=== PATIENT | female | born 1940 | race Caucasian/White ===

== ENCOUNTER → 2019-01-20 | Outpatient (CLI) | payer MEDICARE, MEDICAID ==
[2019-01-20 14:59] LABS: Potassium 4.2 mmol/L (3.5-5.1); Sodium 143 mmol/L (136-145)
[2019-01-20 15:00] LABS: Alanine Aminotransferase 24 U/L (13-56); Albumin 3.9 g/dL (3.4-5.0); Alkaline Phosphatase 47 U/L (45-117); Anion Gap 5 (5-15); Aspartate Aminotransferase 22 U/L (15-37); BUN/Creatinine Ratio 23.8; Bilirubin, Total 0.6 mg/dL (0.2-1.0); Blood Urea Nitrogen 24 mg/dL (7-18); Carbon Dioxide 29 mmol/L (21-32); Chloride 109 mmol/L (98-107); Cholesterol 170 mg/dL (< 200); GFR African American 68 mL/min; GFR Non-African American 56 mL/min; Glucose 88 mg/dL (74-106); HDL Cholesterol 73 mg/dL (40-59); Total Protein 7.4 g/dL (6.4-8.2); Triglycerides 84 mg/dL (< 150)
[2019-01-20 15:01] LABS: LDL Cholesterol 87 mg/dL (< 100)
[2019-01-20 15:02] LABS: Basophils # (auto) 0 uL; Basophils % (auto) 0.7 % (0.0-2.0); Eosinophils # (auto) 0.1 uL; Eosinophils % (auto) 1.2 % (0.0-7.0); Hematocrit 42.6 % (36.0-46.0); Hemoglobin 14.1 g/dL (12.2-16.2); Lymphocytes # (auto) 1.8 uL; Lymphocytes % (auto) 30.1 % (10.0-50.0); Mean Corpuscular Hemoglobin 31.3 pg (28.0-32.0); Mean Corpuscular Hgb Conc. 33.1 g/dL (32.0-36.0); Mean Corpuscular Volume 94.5 fL (80.0-100.0); Monocytes # (auto) 0.4 uL; Monocytes % (auto) 7.5 % (0.0-12.0); Neutrophils # (auto) 3.6 uL; Neutrophils % (auto) 60.5 % (37.0-80.0); Nucleated Red Blood Cells % 0.1 %; Platelet Count (auto) 255 10^3/uL (140-450); Red Blood Cells 4.51 10^6/uL (4.0-5.20); Red Cell Distribution Width 13.6 % (11.8-14.3); White Blood Cell 5.9 10^3/uL (4.4-10.8)
== END | disposition home or self-care (01) ==
LOC: LAB 14:42
PROVIDERS: ATTEND Internal Medicine Cardiovascular Disease
DX: E78.00 Pure hypercholesterolemia, unspecified (principal); R00.2 Palpitations; I10 Essential (primary) hypertension; R94.31 Abnormal electrocardiogram [ECG] [EKG]; R06.02 Shortness of breath; R07.9 Chest pain, unspecified
CPT/HCPCS: 36415; 80053; 80061; 84443; 85025

== ENCOUNTER → 2019-03-15 | Outpatient (CLI) | payer MEDICARE, MEDICAID ==
[2019-03-15 07:58] LABS: Urine Bacteria NONE SEEN /hpf (None Seen); Urine Blood Negative /uL (Negative); Urine Mucus FEW (None Seen); Urine Specific Gravity 1.019 (1.001-1.035); Urine WBC <1 /hpf (0 - 5)
[2019-03-15 08:01] LABS: INR 0.98 (0.9-1.15); Partial Thromboplastin Time 29.5 sec (23.64-32.05)
[2019-03-15 08:03] LABS: Basophils # (auto) 0.1 uL; Basophils % (auto) 1.3 % (0.0-2.0); Eosinophils # (auto) 0.1 uL; Eosinophils % (auto) 1.9 % (0.0-7.0); Hematocrit 42.5 % (36.0-46.0); Hemoglobin 14.2 g/dL (12.2-16.2); Lymphocytes # (auto) 1.5 uL; Lymphocytes % (auto) 28.9 % (10.0-50.0); Mean Corpuscular Hemoglobin 31.5 pg (28.0-32.0); Mean Corpuscular Hgb Conc. 33.3 g/dL (32.0-36.0); Mean Corpuscular Volume 94.7 fL (80.0-100.0); Monocytes # (auto) 0.4 uL; Monocytes % (auto) 7.5 % (0.0-12.0); Neutrophils # (auto) 3.1 uL; Neutrophils % (auto) 60.4 % (37.0-80.0); Nucleated Red Blood Cells % 0.1 %; Platelet Count (auto) 274 10^3/uL (140-450); Red Blood Cells 4.49 10^6/uL (4.0-5.20); Red Cell Distribution Width 13.5 % (11.8-14.3); White Blood Cell 5.2 10^3/uL (4.4-10.8)
[2019-03-15 08:11] LABS: Albumin 3.9 g/dL (3.4-5.0); Calcium 9.4 mg/dL (8.5-10.1); Potassium 4.1 mmol/L (3.5-5.1)
[2019-03-15 08:14] LABS: Bilirubin, Total 0.5 mg/dL (0.2-1.0); Total Protein 7.3 g/dL (6.4-8.2)
== END | disposition home or self-care (01) ==
LOC: LAB 07:35
PROVIDERS: ATTEND Internal Medicine Cardiovascular Disease
DX: I34.0 Nonrheumatic mitral (valve) insufficiency (principal); I35.1 Nonrheumatic aortic (valve) insufficiency; I48.0 Paroxysmal atrial fibrillation; I10 Essential (primary) hypertension; R00.2 Palpitations; E78.00 Pure hypercholesterolemia, unspecified; R94.31 Abnormal electrocardiogram [ECG] [EKG]; R07.89 Other chest pain; I27.21 Secondary pulmonary arterial hypertension; N39.0 Urinary tract infection, site not specified
CPT/HCPCS: 36415; 80053; 81001; 85025; 85610; 85730; 87086

== ENCOUNTER → 2019-10-04 | Outpatient (CLI) | payer MEDICARE, MEDICAID ==
[2019-10-04 08:48] LABS: Basophils # (auto) 0.1 uL; Basophils % (auto) 1.2 % (0.0-2.0); Eosinophils # (auto) 0.1 uL; Eosinophils % (auto) 1.3 % (0.0-7.0); Hematocrit 42.2 % (36.0-46.0); Hemoglobin 14.2 g/dL (12.2-16.2); Lymphocytes # (auto) 1.7 uL; Lymphocytes % (auto) 34.1 % (10.0-50.0); Mean Corpuscular Hemoglobin 31.5 pg (28.0-32.0); Mean Corpuscular Hgb Conc. 33.5 g/dL (32.0-36.0); Mean Corpuscular Volume 93.9 fL (80.0-100.0); Monocytes # (auto) 0.4 uL; Monocytes % (auto) 7.9 % (0.0-12.0); Neutrophils # (auto) 2.8 uL; Neutrophils % (auto) 55.5 % (37.0-80.0); Nucleated Red Blood Cells % 0.1 %; Platelet Count (auto) 286 10^3/uL (140-450); White Blood Cell 5.1 10^3/uL (4.4-10.8)
[2019-10-04 09:24] LABS: Potassium 3.9 mmol/L (3.5-5.1)
[2019-10-04 09:33] LABS: Albumin 3.7 g/dL (3.4-5.0); BUN/Creatinine Ratio 15.2; Bilirubin, Total 0.5 mg/dL (0.2-1.0); Calcium 9.1 mg/dL (8.5-10.1); Total Protein 7.4 g/dL (6.4-8.2)
== END | disposition home or self-care (01) ==
LOC: LAB 07:54
DX: F41.1 Generalized anxiety disorder (principal); I70.0 Atherosclerosis of aorta; E78.5 Hyperlipidemia, unspecified; E03.9 Hypothyroidism, unspecified; I11.9 Hypertensive heart disease without heart failure; E11.9 Type 2 diabetes mellitus without complications; E78.00 Pure hypercholesterolemia, unspecified; N39.0 Urinary tract infection, site not specified; R00.2 Palpitations; R06.02 Shortness of breath; R07.89 Other chest pain; R94.6 Abnormal results of thyroid function studies; R94.31 Abnormal electrocardiogram [ECG] [EKG]; Z79.899 Other long term (current) drug therapy
CPT/HCPCS: 36415; 80053; 80061; 82306; 83036; 84443; 85025

== ENCOUNTER → 2020-01-05 | Outpatient (CLI) | payer MEDICARE, MEDICAID | END | disposition home or self-care (01) | LOC: LAB 07:31 | DX: Z12.11 Encounter for screening for malignant neoplasm of colon (principal); R07.89 Other chest pain; I70.0 Atherosclerosis of aorta; R73.9 Hyperglycemia, unspecified | CPT/HCPCS: 36415; 83036 ==

== ENCOUNTER → 2020-10-06 | Outpatient (CLI) | payer MEDICARE, MEDICAID ==
[2020-10-06 07:06] LABS: Basophils # (auto) 0.1 10 ^3/uL (0-0.2); Basophils % (auto) 0.9 % (0.0-2.0); Eosinophils # (auto) 0.1 10 ^3/uL (0-0.8); Hematocrit 39.8 % (36.0-46.0); Hemoglobin 13.3 g/dL (12.2-16.2); Lymphocytes # (auto) 1.7 10 ^3/uL (0.4-5.4); Lymphocytes % (auto) 32.2 % (10.0-50.0); Mean Corpuscular Hemoglobin 31.1 pg (28.0-32.0); Mean Corpuscular Hgb Conc. 33.5 g/dL (32.0-36.0); Mean Corpuscular Volume 92.8 fL (80.0-100.0); Monocytes # (auto) 0.4 10 ^3/uL (0-1.3); Monocytes % (auto) 7.6 % (0.0-12.0); Neutrophils # (auto) 3.1 10 ^3/uL (1.6-8.6); Neutrophils % (auto) 58.3 % (37.0-80.0); Platelet Count (auto) 256 10^3/uL (140-450); Red Blood Cells 4.29 10^6/uL (4.0-5.20); Red Cell Distribution Width 13.5 % (11.8-14.3); White Blood Cell 5.4 10^3/uL (4.4-10.8)
[2020-10-06 07:23] LABS: Urine Bacteria NONE SEEN /hpf (None Seen); Urine Blood Negative /uL (Negative); Urine Hyaline Cast MOD /lpf (0 - 2); Urine Mucus FEW (None Seen); Urine Specific Gravity 1.021 (1.001-1.035); Urine WBC 2 /hpf (0 - 5)
[2020-10-06 07:27] LABS: Albumin 3.7 g/dL (3.4-5.0); Calcium 8.5 mg/dL (8.5-10.1)
[2020-10-06 07:31] LABS: BUN/Creatinine Ratio 18.6; Bilirubin, Total 0.5 mg/dL (0.2-1.0); Total Protein 7.3 g/dL (6.4-8.2)
== END | disposition home or self-care (01) ==
LOC: LAB 06:57
PROVIDERS: ATTEND Internal Medicine Cardiovascular Disease
DX: I11.9 Hypertensive heart disease without heart failure (principal); E88.81 Metabolic syndrome and other insulin resistance; E03.9 Hypothyroidism, unspecified; E55.9 Vitamin D deficiency, unspecified; E78.5 Hyperlipidemia, unspecified; E04.1 Nontoxic single thyroid nodule
CPT/HCPCS: 36415; 80053; 80061; 81001; 82306; 84443; 85025

== ENCOUNTER 2020-10-08 09:34 | Emergency (ER) | payer MEDICARE, MEDICAID ==
[~2020-10-08] VITALS: Ht 162.6 cm; Wt 61.2 kg
[2020-10-08] MEDS ORDERED: ASPirin 81 mg TAB PO ONE (10:00)
[2020-10-08 11:16] LABS: Basophils # (auto) 0 10 ^3/uL (0-0.2); Basophils % (auto) 0.6 % (0.0-2.0); Eosinophils # (auto) 0.1 10 ^3/uL (0-0.8); Eosinophils % (auto) 0.9 % (0.0-7.0); Hematocrit 41.1 % (36.0-46.0); Hemoglobin 13.7 g/dL (12.2-16.2); Lymphocytes # (auto) 2.2 10 ^3/uL (0.4-5.4); Lymphocytes % (auto) 29.4 % (10.0-50.0); Mean Corpuscular Hemoglobin 30.9 pg (28.0-32.0); Mean Corpuscular Hgb Conc. 33.3 g/dL (32.0-36.0); Mean Corpuscular Volume 92.9 fL (80.0-100.0); Monocytes # (auto) 0.7 10 ^3/uL (0-1.3); Neutrophils # (auto) 4.5 10 ^3/uL (1.6-8.6); Neutrophils % (auto) 60.1 % (37.0-80.0); Nucleated Red Blood Cells % 0.1 %; Red Blood Cells 4.43 10^6/uL (4.0-5.20); Red Cell Distribution Width 13.6 % (11.8-14.3); White Blood Cell 7.4 10^3/uL (4.4-10.8)
[2020-10-08 11:43] VITALS: BP 122/74
[2020-10-08 11:48] LABS: Albumin 3.9 g/dL (3.4-5.0); Anion Gap 6 (5-15); Blood Urea Nitrogen 18 mg/dL (7-18); Calcium 8.8 mg/dL (8.5-10.1); Carbon Dioxide 26 mmol/L (21-32); Chloride 110 mmol/L (98-107); Glucose 132 mg/dL (74-106); Sodium 142 mmol/L (136-145)
[2020-10-08 11:55] LABS: Alanine Aminotransferase 19 U/L (13-56); Alkaline Phosphatase 72 U/L (45-117); Aspartate Aminotransferase 15 U/L (15-37); BUN/Creatinine Ratio 15.9; Bilirubin, Total 0.4 mg/dL (0.2-1.0); GFR African American 60 mL/min; GFR Non-African American 49 mL/min; Total Protein 7.7 g/dL (6.4-8.2)
== END 2020-10-08 12:36 | disposition left against medical advice (07) ==
LOC: ER 09:34
DX: I24.9 Acute ischemic heart disease, unspecified (principal); I10 Essential (primary) hypertension; E78.5 Hyperlipidemia, unspecified; Z88.1 Allergy status to other antibiotic agents
CPT/HCPCS: 36415; 71045; 80053; 83880; 84484; 85025; 93005

== ENCOUNTER 2022-06-12 06:20 | Emergency (ER) | payer MEDICARE, MEDICAID ==
[~2022-06-12] VITALS: Ht 162.6 cm; Wt 59.1 kg
[2022-06-12 06:47] LABS: Basophils # (auto) 0.1 10 ^3/uL (0-0.2); Basophils % (auto) 0.8 % (0.0-2.0); Eosinophils # (auto) 0.3 10 ^3/uL (0-0.8); Eosinophils % (auto) 3.6 % (0.0-7.0); Hematocrit 41.5 % (36.0-46.0); Hemoglobin 13.8 g/dL (12.2-16.2); Lymphocytes # (auto) 2.4 10 ^3/uL (0.4-5.4); Lymphocytes % (auto) 33.3 % (10.0-50.0); Mean Corpuscular Hemoglobin 30.9 pg (28.0-32.0); Mean Corpuscular Hgb Conc. 33.2 g/dL (32.0-36.0); Mean Corpuscular Volume 93.2 fL (80.0-100.0); Monocytes # (auto) 0.5 10 ^3/uL (0-1.3); Monocytes % (auto) 6.4 % (0.0-12.0); Neutrophils % (auto) 55.9 % (37.0-80.0); Nucleated Red Blood Cells % 0.1 %; Red Blood Cells 4.45 10^6/uL (4.0-5.20); Red Cell Distribution Width 13.3 % (11.8-14.3); White Blood Cell 7.1 10^3/uL (4.4-10.8)
[2022-06-12 07:05] LABS: Albumin 3.9 g/dL (3.4-5.0); BUN/Creatinine Ratio 18.9; Calcium 8.9 mg/dL (8.5-10.1); Magnesium 2.1 mg/dL (1.6-2.6); Potassium 3.5 mmol/L (3.5-5.1)
[2022-06-12 07:07] LABS: Bilirubin, Total 0.5 mg/dL (0.2-1.0); Total Protein 7.1 g/dL (6.4-8.2)
[2022-06-12] MEDS ORDERED: SODIUM CHLORIDE 0.9% 1,000 ML IV ONE (07:15)
[2022-06-12 11:01] VITALS: BP 153/89
[2022-06-12 12:58] LABS: Urine Bacteria NONE SEEN /hpf (None Seen); Urine Blood Negative /uL (Negative); Urine Specific Gravity 1.009 (1.001-1.035); Urine WBC <1 /hpf (0 - 5)
== END 2022-06-12 12:35 | disposition home or self-care (01) ==
LOC: ER 06:20
DX: R07.89 Other chest pain (principal); I49.8 Other specified cardiac arrhythmias; E03.9 Hypothyroidism, unspecified; R73.9 Hyperglycemia, unspecified; I12.9 Hypertensive chronic kidney disease with stage 1 through stage 4 chronic kidney disease, or unspecified chronic kidney disease; N18.30 Chronic kidney disease, stage 3 unspecified; I48.91 Unspecified atrial fibrillation; E78.5 Hyperlipidemia, unspecified; Z88.1 Allergy status to other antibiotic agents
CPT/HCPCS: 36415; 71045; 80053; 81001; 83735; 83880; 84443; 84484; 85025; 93005; 96360; 96361; 99285; J7030

== ENCOUNTER → 2022-07-09 | Outpatient (CLI) | payer MEDICARE, MEDICAID ==
[2022-07-09 09:23] LABS: Albumin 3.5 g/dL (3.4-5.0); BUN/Creatinine Ratio 19.4; Bilirubin, Total 0.5 mg/dL (0.2-1.0); Calcium 8.9 mg/dL (8.5-10.1); Potassium 4.1 mmol/L (3.5-5.1); Total Protein 6.9 g/dL (6.4-8.2)
[2022-07-09 09:24] LABS: Basophils # (auto) 0.1 10 ^3/uL (0-0.2); Basophils % (auto) 0.9 % (0.0-2.0); Eosinophils # (auto) 0.2 10 ^3/uL (0-0.8); Eosinophils % (auto) 3.7 % (0.0-7.0); Hemoglobin 13.1 g/dL (12.2-16.2); Lymphocytes # (auto) 1.5 10 ^3/uL (0.4-5.4); Lymphocytes % (auto) 26.3 % (10.0-50.0); Mean Corpuscular Hemoglobin 31.3 pg (28.0-32.0); Mean Corpuscular Hgb Conc. 33.7 g/dL (32.0-36.0); Mean Corpuscular Volume 92.9 fL (80.0-100.0); Monocytes # (auto) 0.4 10 ^3/uL (0-1.3); Monocytes % (auto) 7.2 % (0.0-12.0); Neutrophils # (auto) 3.4 10 ^3/uL (1.6-8.6); Neutrophils % (auto) 61.9 % (37.0-80.0); Red Blood Cells 4.19 10^6/uL (4.0-5.20); Red Cell Distribution Width 13.6 % (11.8-14.3); White Blood Cell 5.6 10^3/uL (4.4-10.8)
== END | disposition home or self-care (01) ==
LOC: LAB 09:06
PROVIDERS: ATTEND Internal Medicine Cardiovascular Disease
DX: I08.0 Rheumatic disorders of both mitral and aortic valves (principal); I10 Essential (primary) hypertension; R06.02 Shortness of breath; R94.31 Abnormal electrocardiogram [ECG] [EKG]; R07.89 Other chest pain; R00.2 Palpitations; E78.00 Pure hypercholesterolemia, unspecified; I48.0 Paroxysmal atrial fibrillation; I27.21 Secondary pulmonary arterial hypertension
CPT/HCPCS: 36415; 80053; 80061; 85025

== ENCOUNTER → 2022-11-25 | Outpatient (CLI) | payer MEDICARE, MEDICAID ==
[2022-11-25 10:50] LABS: Basophils # (auto) 0 10 ^3/uL (0-0.2); Basophils % (auto) 0.5 % (0.0-2.0); Eosinophils # (auto) 0.1 10 ^3/uL (0-0.8); Eosinophils % (auto) 0.9 % (0.0-7.0); Hemoglobin 13.5 g/dL (12.2-16.2); Lymphocytes # (auto) 1.7 10 ^3/uL (0.4-5.4); Lymphocytes % (auto) 20.8 % (10.0-50.0); Mean Corpuscular Hgb Conc. 34.7 g/dL (32.0-36.0); Mean Corpuscular Volume 92.2 fL (80.0-100.0); Monocytes # (auto) 0.6 10 ^3/uL (0-1.3); Monocytes % (auto) 7.1 % (0.0-12.0); Neutrophils # (auto) 5.7 10 ^3/uL (1.6-8.6); Neutrophils % (auto) 70.7 % (37.0-80.0); Red Blood Cells 4.23 10^6/uL (4.0-5.20); Red Cell Distribution Width 13.5 % (11.8-14.3); White Blood Cell 8.1 10^3/uL (4.4-10.8)
[2022-11-25 11:14] LABS: Albumin 3.8 g/dL (3.4-5.0); BUN/Creatinine Ratio 16.7; Bilirubin, Total 0.5 mg/dL (0.2-1.0); Potassium 3.9 mmol/L (3.5-5.1)
[2022-11-26 09:29] LABS: Urine Bacteria NONE SEEN /hpf (None Seen); Urine Blood Negative /uL (Negative); Urine Mucus FEW (None Seen); Urine Specific Gravity 1.008 (1.001-1.035); Urine WBC 1 /hpf (0 - 5)
== END | disposition home or self-care (01) ==
LOC: LAB 08:58
DX: I10 Essential (primary) hypertension (principal); R06.02 Shortness of breath; R00.2 Palpitations; R94.31 Abnormal electrocardiogram [ECG] [EKG]; E78.00 Pure hypercholesterolemia, unspecified; R07.89 Other chest pain; I48.0 Paroxysmal atrial fibrillation; I08.0 Rheumatic disorders of both mitral and aortic valves; I27.21 Secondary pulmonary arterial hypertension; M79.605 Pain in left leg
CPT/HCPCS: 36415; 80053; 80061; 81001; 82306; 83036; 83880; 84443; 85025

== ENCOUNTER → 2023-04-25 | Outpatient (CLI) | payer MEDICARE, MEDICAID ==
[2023-04-25 08:15] LABS: Basophils # (auto) 0.1 10 ^3/uL (0-0.2); Eosinophils # (auto) 0.1 10 ^3/uL (0-0.8); Eosinophils % (auto) 1.4 % (0.0-7.0); Hematocrit 40.4 % (36.0-46.0); Hemoglobin 13.5 g/dL (12.2-16.2); Lymphocytes # (auto) 2.5 10 ^3/uL (0.4-5.4); Lymphocytes % (auto) 39.5 % (10.0-50.0); Mean Corpuscular Hemoglobin 30.6 pg (28.0-32.0); Mean Corpuscular Hgb Conc. 33.3 g/dL (32.0-36.0); Mean Corpuscular Volume 91.9 fL (80.0-100.0); Monocytes # (auto) 0.5 10 ^3/uL (0-1.3); Monocytes % (auto) 7.2 % (0.0-12.0); Neutrophils # (auto) 3.3 10 ^3/uL (1.6-8.6); Neutrophils % (auto) 50.9 % (37.0-80.0); Nucleated Red Blood Cells % 0.1 %; Red Cell Distribution Width 13.6 % (11.8-14.3); White Blood Cell 6.4 10^3/uL (4.4-10.8)
[2023-04-25 08:16] LABS: BUN/Creatinine Ratio 15.6 (10.0-20.0); Bilirubin, Total 0.5 mg/dL (0.2-1.0); Calcium 8.8 mg/dL (8.5-10.1); Potassium 3.8 mmol/L (3.5-5.1)
== END | disposition home or self-care (01) ==
LOC: LAB 08:09
PROVIDERS: ATTEND Physician Assistant Medical
DX: E78.2 Mixed hyperlipidemia (principal); E79.0 Hyperuricemia without signs of inflammatory arthritis and tophaceous disease; D64.9 Anemia, unspecified; R00.2 Palpitations; R06.02 Shortness of breath
CPT/HCPCS: 36415; 80053; 80061; 83880; 84443; 84550; 85025

== ENCOUNTER 2023-05-01 07:38 | Inpatient (IN) | payer MEDICARE, MEDICAID ==
[~2023-05-01] VITALS: Ht 162.6 cm; Wt 59.5 kg
[2023-05-01 08:14] LABS: Basophils # (auto) 0.1 10 ^3/uL (0-0.2); Basophils % (auto) 0.7 % (0.0-2.0); Eosinophils # (auto) 0.1 10 ^3/uL (0-0.8); Eosinophils % (auto) 1.5 % (0.0-7.0); Hematocrit 43.8 % (36.0-46.0); Hemoglobin 14.6 g/dL (12.2-16.2); Lymphocytes # (auto) 1.6 10 ^3/uL (0.4-5.4); Mean Corpuscular Hemoglobin 30.7 pg (28.0-32.0); Mean Corpuscular Hgb Conc. 33.3 g/dL (32.0-36.0); Mean Corpuscular Volume 92.3 fL (80.0-100.0); Monocytes # (auto) 0.9 10 ^3/uL (0-1.3); Monocytes % (auto) 12.3 % (0.0-12.0); Neutrophils # (auto) 4.5 10 ^3/uL (1.6-8.6); Neutrophils % (auto) 63.5 % (37.0-80.0); Nucleated Red Blood Cells % 0.1 %; Red Blood Cells 4.74 10^6/uL (4.0-5.20); Red Cell Distribution Width 14.3 % (11.8-14.3); White Blood Cell 7.2 10^3/uL (4.4-10.8)
[2023-05-01] MEDS ORDERED: cefTRIAXone 1GM/50ML D5W 50 ML IV ONE (08:30)
[2023-05-01] MEDS ORDERED: AZITHROMYCIN 500MG/ 250ML 250 ML IV ONE (08:30)
[2023-05-01 09:05] LABS: Albumin 3.8 g/dL (3.4-5.0); Calcium 8.6 mg/dL (8.5-10.1); Potassium 3.4 mmol/L (3.5-5.1)
[2023-05-01 09:08] LABS: BUN/Creatinine Ratio 11.7 (10.0-20.0); Bilirubin, Total 0.4 mg/dL (0.2-1.0); Total Protein 7.7 g/dL (6.4-8.2)
[2023-05-01 10:20] LABS: COVID19 ANTIGEN SOFIA FIA NEGATIVE (NEGATIVE)
[2023-05-01] MEDS ORDERED: DOCUSATE SOD 100 MG CAP PO PRN (11:15)
[2023-05-01] MEDS ORDERED: DEXTROSE (50%) 50ML SYRG IV PRN (11:15)
[2023-05-01] MEDS ORDERED: ONDANSETRON HCL 4 MG/2 ML VIAL IV PRN (11:15)
[2023-05-01] MEDS ORDERED: MORPHINE SULFATE INJ 2 MG/ml SYRG IV PRN (11:15)
[2023-05-01] MEDS ORDERED: POTASSIUM EFFERVESENT TAB 25 MEQ PO ONE (11:30)
[2023-05-01] MEDS: InsuLIN REG 1unit/0.01ml Soln (100units/ml) SC SCH ×3 (11:30→22:00)
[2023-05-01] MEDS: ACCU-CHEK COMFORT CURVE STRIP VI SCH ×3 (11:30→22:14)
[2023-05-01 11:41] LABS: Base Excess -1.9 mmol/L (-2.0-2.0)
[2023-05-01 12:28] VITALS: BP 135/89; PULSE 71; RESP 16; TEMP 98.5; O2SAT 97
[2023-05-01] MEDS: IPRATROPIUM BROM 0.5 MG/2.5ML INH SOL NEB SCH ×2 (12:28→18:17)
[2023-05-01] MEDS: ALBUTEROL SULF 2.5 MG/0.5ML(0.5%) NEB SOLN NEB SCH ×2 (12:28→18:17)
[2023-05-01 12:34] VITALS: PULSE 61; RESP 16; O2SAT 100
[2023-05-01 12:48] LABS: Urine Bacteria FEW /hpf (None Seen); Urine Blood Negative /uL (Negative); Urine Clarity HAZY (Clear); Urine Color Yellow (Yellow); Urine Hyaline Cast MANY /lpf (0 - 2); Urine Mucus FEW (None Seen); Urine Protein, UAD 1+ (Negative); Urine Specific Gravity 1.024 (1.001-1.035); Urine Urobilinogen Normal (Negative); Urine WBC 27 /hpf (0 - 5); Urine pH 5.5 (5.0-8.0)
[2023-05-01 13:45] VITALS: PULSE 84; RESP 22; O2SAT 99
[2023-05-01] MEDS: DexAMETHasone SOD PHOS 4 MG/1ML SDV INJ IV SCH ×2 (14:18→18:08)
[2023-05-01 17:50] VITALS: PULSE 75; RESP 18; O2SAT 95
[2023-05-01 18:00] VITALS: PULSE 74; RESP 16; O2SAT 100
[2023-05-01 18:21] LABS: Rapid Influenza A Negative (Negative); Rapid Influenza B Negative (Negative)
[2023-05-01 19:30] VITALS: PULSE 85; RESP 22; O2SAT 92
[2023-05-01] MEDS: NIFEdipine ER 30 MG TAB PO SCH (22:27)
[2023-05-01] MEDS: ATORVASTATIN 20 MG TAB PO SCH (22:27)
[2023-05-01] MEDS: APIXABAN 2.5 MG TAB PO SCH (22:27)
[2023-05-01] MEDS: ALPRAZolam 0.25 MG TAB PO PRN (22:31)
[2023-05-02] VITALS (20 sets, daily range): BP systolic 112–149; BP diastolic 56–71; PULSE 56–117; RESP 14–18; TEMP 97.9–98.8; O2SAT 92–100
[2023-05-02] MEDS: DexAMETHasone SOD PHOS 4 MG/1ML SDV INJ IV SCH ×2 (00:14→07:04)
[2023-05-02] MEDS: ALBUTEROL SULF 2.5 MG/0.5ML(0.5%) NEB SOLN NEB SCH ×4 (00:33→18:00)
[2023-05-02] MEDS: IPRATROPIUM BROM 0.5 MG/2.5ML INH SOL NEB SCH ×4 (00:34→19:24)
[2023-05-02] MEDS ORDERED: NIFE1TAB31 (02:54)
[2023-05-02] MEDS ORDERED: METO25TA93 PO (02:54)
[2023-05-02] MEDS ORDERED: FENO134C19 PO (02:54)
[2023-05-02] MEDS ORDERED: LEVO25TA6 PO (02:54)
[2023-05-02] MEDS ORDERED: ALPR0.255 PO (02:54)
[2023-05-02] MEDS ORDERED: LEVO50TA7 PO (02:54)
[2023-05-02 06:32] LABS: Basophils # (auto) 0 10 ^3/uL (0-0.2); Basophils % (auto) 0.1 % (0.0-2.0); Eosinophils # (auto) 0 10 ^3/uL (0-0.8); Hematocrit 41.3 % (36.0-46.0); Hemoglobin 13.9 g/dL (12.2-16.2); Lymphocytes # (auto) 0.6 10 ^3/uL (0.4-5.4); Mean Corpuscular Hgb Conc. 33.6 g/dL (32.0-36.0); Mean Corpuscular Volume 92.3 fL (80.0-100.0); Monocytes # (auto) 0.1 10 ^3/uL (0-1.3); Monocytes % (auto) 1.8 % (0.0-12.0); Neutrophils # (auto) 4.6 10 ^3/uL (1.6-8.6); Neutrophils % (auto) 87.1 % (37.0-80.0); Red Blood Cells 4.48 10^6/uL (4.0-5.20); Red Cell Distribution Width 14.1 % (11.8-14.3); White Blood Cell 5.3 10^3/uL (4.4-10.8)
[2023-05-02 06:48] LABS: Albumin 3.6 g/dL (3.4-5.0); BUN/Creatinine Ratio 14.9 (10.0-20.0); Bilirubin, Total 0.3 mg/dL (0.2-1.0); Calcium 8.8 mg/dL (8.5-10.1); Total Protein 7.5 g/dL (6.4-8.2)
[2023-05-02] MEDS: ACCU-CHEK COMFORT CURVE STRIP VI SCH ×4 (06:59→22:00)
[2023-05-02] MEDS: InsuLIN REG 1unit/0.01ml Soln (100units/ml) SC SCH ×4 (06:59→22:00)
[2023-05-02] MEDS: LEVOTHYROXINE SODIUM 25 MCG TAB PO SCH (07:04)
[2023-05-02] MEDS: METOPROLOL TARTRATE 25 MG TAB PO SCH (09:43)
[2023-05-02] MEDS: APIXABAN 2.5 MG TAB PO SCH ×2 (09:43→22:17)
[2023-05-02] MEDS: NIFEdipine ER 30 MG TAB PO SCH ×2 (09:43→22:17)
[2023-05-02] MEDS ORDERED: cefTRIAXone 1GM/50ML D5W 50 ML IV ONE (12:00)
[2023-05-02] MEDS ORDERED: FUROSEMIDE 20 MG/2 ML VIAL IV ONE (15:30)
[2023-05-02] MEDS: FUROSEMIDE 20 MG/2 ML VIAL IV SCH (18:00)
[2023-05-02] MEDS: LEVALBUTEROL HCL 1.25 MG/3 ML NEB NEB SCH (19:24)
[2023-05-02] MEDS: ATORVASTATIN 20 MG TAB PO SCH (22:17)
[2023-05-02] MEDS: DOXYCYCLINE 100 MG TAB/CAP PO SCH (22:17)
[2023-05-03] VITALS (16 sets, daily range): BP systolic 110–128; BP diastolic 50–57; PULSE 62–92; RESP 14–18; TEMP 97.8–98.6; O2SAT 91–99
[2023-05-03] MEDS: IPRATROPIUM BROM 0.5 MG/2.5ML INH SOL NEB SCH ×4 (00:07→18:57)
[2023-05-03] MEDS: ALBUTEROL SULF 2.5 MG/0.5ML(0.5%) NEB SOLN NEB SCH (00:07)
[2023-05-03] MEDS: LEVALBUTEROL HCL 1.25 MG/3 ML NEB NEB SCH ×4 (00:07→18:57)
[2023-05-03] MEDS ORDERED: ACETAMINOPHEN 325 MG TAB PO PRN (02:00)
[2023-05-03] MEDS: InsuLIN REG 1unit/0.01ml Soln (100units/ml) SC SCH ×4 (06:08→21:51)
[2023-05-03] MEDS: ACCU-CHEK COMFORT CURVE STRIP VI SCH ×4 (06:08→21:51)
[2023-05-03] MEDS: LEVOTHYROXINE SODIUM 25 MCG TAB PO SCH (06:08)
[2023-05-03] MEDS: FUROSEMIDE 20 MG/2 ML VIAL IV SCH ×2 (06:08→18:52)
[2023-05-03] MEDS: cefTRIAXone 1GM/50ML D5W 50 ML IV SCH (09:43)
[2023-05-03] MEDS: ASPirin 81 mg TAB PO SCH (09:47)
[2023-05-03] MEDS: APIXABAN 2.5 MG TAB PO SCH ×2 (09:47→21:49)
[2023-05-03] MEDS: DOXYCYCLINE 100 MG TAB/CAP PO SCH ×2 (09:48→21:50)
[2023-05-03] MEDS: NIFEdipine ER 30 MG TAB PO SCH ×2 (09:50→21:49)
[2023-05-03] MEDS: METOPROLOL TARTRATE 25 MG TAB PO SCH (09:51)
[2023-05-03 13:21] LABS: Base Excess 1.8 mmol/L (-2.0-2.0)
[2023-05-03] MEDS: ATORVASTATIN 20 MG TAB PO SCH (21:47)
[2023-05-03] MEDS: ALPRAZolam 0.25 MG TAB PO PRN (21:50)
[2023-05-04] VITALS (14 sets, daily range): BP systolic 113–132; BP diastolic 52–63; PULSE 62–96; RESP 16–20; TEMP 97.3–98.3; O2SAT 92–99
[2023-05-04] MEDS: IPRATROPIUM BROM 0.5 MG/2.5ML INH SOL NEB SCH ×4 (00:17→23:07)
[2023-05-04] MEDS: LEVALBUTEROL HCL 1.25 MG/3 ML NEB NEB SCH ×4 (00:17→23:07)
[2023-05-04] MEDS: FUROSEMIDE 20 MG/2 ML VIAL IV SCH ×2 (05:40→18:35)
[2023-05-04] MEDS: ACCU-CHEK COMFORT CURVE STRIP VI SCH ×4 (06:10→21:10)
[2023-05-04] MEDS: InsuLIN REG 1unit/0.01ml Soln (100units/ml) SC SCH ×4 (06:10→21:10)
[2023-05-04] MEDS: LEVOTHYROXINE SODIUM 25 MCG TAB PO SCH (06:10)
[2023-05-04 07:25] LABS: BUN/Creatinine Ratio 22.1 (10.0-20.0); Calcium 8.7 mg/dL (8.5-10.1); Potassium 3.3 mmol/L (3.5-5.1)
[2023-05-04] MEDS: APIXABAN 2.5 MG TAB PO SCH ×2 (08:45→21:07)
[2023-05-04] MEDS: cefTRIAXone 1GM/50ML D5W 50 ML IV SCH (08:45)
[2023-05-04] MEDS: NIFEdipine ER 30 MG TAB PO SCH ×2 (08:46→21:09)
[2023-05-04] MEDS: METOPROLOL TARTRATE 25 MG TAB PO SCH (08:46)
[2023-05-04] MEDS: DOXYCYCLINE 100 MG TAB/CAP PO SCH ×2 (08:47→21:10)
[2023-05-04] MEDS: ATORVASTATIN 20 MG TAB PO SCH (21:08)
[2023-05-04] MEDS: ALPRAZolam 0.25 MG TAB PO PRN (21:11)
[2023-05-05] VITALS (20 sets, daily range): BP systolic 118–130; BP diastolic 52–66; PULSE 68–119; RESP 14–20; TEMP 97.9–98; O2SAT 91–100
[2023-05-05] MEDS: LEVALBUTEROL HCL 1.25 MG/3 ML NEB NEB SCH ×4 (00:29→19:11)
[2023-05-05] MEDS: IPRATROPIUM BROM 0.5 MG/2.5ML INH SOL NEB SCH ×4 (00:29→19:11)
[2023-05-05] MEDS: FUROSEMIDE 20 MG/2 ML VIAL IV SCH ×2 (05:55→18:22)
[2023-05-05] MEDS: LEVOTHYROXINE SODIUM 25 MCG TAB PO SCH (05:59)
[2023-05-05] MEDS: ACCU-CHEK COMFORT CURVE STRIP VI SCH ×4 (06:00→22:00)
[2023-05-05] MEDS: InsuLIN REG 1unit/0.01ml Soln (100units/ml) SC SCH ×4 (06:01→22:00)
[2023-05-05 06:24] LABS: Basophils # (auto) 0 10 ^3/uL (0-0.2); Basophils % (auto) 0.4 % (0.0-2.0); Eosinophils # (auto) 0.1 10 ^3/uL (0-0.8); Eosinophils % (auto) 0.9 % (0.0-7.0); Hematocrit 42.6 % (36.0-46.0); Hemoglobin 14.1 g/dL (12.2-16.2); Lymphocytes # (auto) 1.9 10 ^3/uL (0.4-5.4); Lymphocytes % (auto) 25.4 % (10.0-50.0); Mean Corpuscular Hemoglobin 30.5 pg (28.0-32.0); Mean Corpuscular Volume 92.5 fL (80.0-100.0); Monocytes # (auto) 0.8 10 ^3/uL (0-1.3); Neutrophils # (auto) 4.7 10 ^3/uL (1.6-8.6); Neutrophils % (auto) 62.3 % (37.0-80.0); Nucleated Red Blood Cells % 0.1 %; White Blood Cell 7.5 10^3/uL (4.4-10.8)
[2023-05-05 06:32] LABS: BUN/Creatinine Ratio 22.8 (10.0-20.0); Calcium 8.8 mg/dL (8.5-10.1); Potassium 3.2 mmol/L (3.5-5.1)
[2023-05-05] MEDS: cefTRIAXone 1GM/50ML D5W 50 ML IV SCH (09:01)
[2023-05-05] MEDS: APIXABAN 2.5 MG TAB PO SCH ×2 (09:01→22:28)
[2023-05-05] MEDS: NIFEdipine ER 30 MG TAB PO SCH (09:01)
[2023-05-05] MEDS: METOPROLOL TARTRATE 25 MG TAB PO SCH ×2 (09:02→22:30)
[2023-05-05] MEDS: ASPirin 81 mg TAB PO SCH (09:02)
[2023-05-05] MEDS: DOXYCYCLINE 100 MG TAB/CAP PO SCH ×2 (09:02→22:28)
[2023-05-05] MEDS ORDERED: POTASSIUM EFFERVESENT TAB 25 MEQ PO ONE (09:30)
[2023-05-05] MEDS: ATORVASTATIN 20 MG TAB PO SCH (22:00)
[2023-05-05] MEDS: ALPRAZolam 0.25 MG TAB PO PRN (23:03)
[2023-05-06] VITALS (15 sets, daily range): BP systolic 122–159; BP diastolic 54–68; PULSE 40–90; RESP 14–19; TEMP 36.6; O2SAT 95–100
[2023-05-06] MEDS: IPRATROPIUM BROM 0.5 MG/2.5ML INH SOL NEB SCH ×4 (00:27→19:38)
[2023-05-06] MEDS: LEVALBUTEROL HCL 1.25 MG/3 ML NEB NEB SCH ×4 (00:27→19:38)
[2023-05-06] MEDS: LEVOTHYROXINE SODIUM 25 MCG TAB PO SCH (06:04)
[2023-05-06] MEDS: FUROSEMIDE 20 MG/2 ML VIAL IV SCH ×2 (06:05→18:17)
[2023-05-06] MEDS: InsuLIN REG 1unit/0.01ml Soln (100units/ml) SC SCH ×4 (06:10→22:00)
[2023-05-06] MEDS: ACCU-CHEK COMFORT CURVE STRIP VI SCH ×4 (06:10→22:00)
[2023-05-06 06:41] LABS: Basophils # (auto) 0 10 ^3/uL (0-0.2); Basophils % (auto) 0.7 % (0.0-2.0); Eosinophils # (auto) 0.1 10 ^3/uL (0-0.8); Eosinophils % (auto) 1.5 % (0.0-7.0); Hematocrit 40.4 % (36.0-46.0); Hemoglobin 13.3 g/dL (12.2-16.2); Lymphocytes # (auto) 1.8 10 ^3/uL (0.4-5.4); Lymphocytes % (auto) 26.4 % (10.0-50.0); Mean Corpuscular Hemoglobin 30.3 pg (28.0-32.0); Mean Corpuscular Volume 91.9 fL (80.0-100.0); Monocytes # (auto) 0.6 10 ^3/uL (0-1.3); Neutrophils # (auto) 4.2 10 ^3/uL (1.6-8.6); Neutrophils % (auto) 62.4 % (37.0-80.0); Red Cell Distribution Width 13.9 % (11.8-14.3); White Blood Cell 6.8 10^3/uL (4.4-10.8)
[2023-05-06 06:57] LABS: Calcium 8.5 mg/dL (8.5-10.1); Magnesium 2.7 mg/dL (1.6-2.6); Potassium 3.7 mmol/L (3.5-5.1)
[2023-05-06 06:59] LABS: BUN/Creatinine Ratio 26.2 (10.0-20.0)
[2023-05-06] MEDS: APIXABAN 2.5 MG TAB PO SCH (09:07)
[2023-05-06] MEDS: DOXYCYCLINE 100 MG TAB/CAP PO SCH ×2 (09:07→21:28)
[2023-05-06] MEDS: METOPROLOL TARTRATE 25 MG TAB PO SCH ×2 (09:07→21:29)
[2023-05-06] MEDS: cefTRIAXone 1GM/50ML D5W 50 ML IV SCH (09:07)
[2023-05-06] MEDS: ALPRAZolam 0.25 MG TAB PO PRN (21:28)
[2023-05-06] MEDS: ATORVASTATIN 20 MG TAB PO SCH (22:00)
[2023-05-06] MEDS ORDERED: APIXABAN 5 MG TAB PO SCH (22:00)
[2023-05-07] VITALS (13 sets, daily range): BP systolic 113–138; BP diastolic 53–70; PULSE 61–96; RESP 16–19; TEMP 36.7; O2SAT 92–100
[2023-05-07] MEDS: LEVALBUTEROL HCL 1.25 MG/3 ML NEB NEB SCH ×3 (00:03→12:21)
[2023-05-07] MEDS: IPRATROPIUM BROM 0.5 MG/2.5ML INH SOL NEB SCH ×3 (00:03→12:20)
[2023-05-07] MEDS: InsuLIN REG 1unit/0.01ml Soln (100units/ml) SC SCH ×2 (06:11→11:30)
[2023-05-07] MEDS: ACCU-CHEK COMFORT CURVE STRIP VI SCH ×2 (06:12→11:30)
[2023-05-07] MEDS: LEVOTHYROXINE SODIUM 25 MCG TAB PO SCH (06:16)
[2023-05-07] MEDS: FUROSEMIDE 20 MG/2 ML VIAL IV SCH (06:17)
[2023-05-07 06:29] LABS: Basophils # (auto) 0.1 10 ^3/uL (0-0.2); Basophils % (auto) 0.8 % (0.0-2.0); Eosinophils # (auto) 0.1 10 ^3/uL (0-0.8); Eosinophils % (auto) 1.8 % (0.0-7.0); Hematocrit 40.2 % (36.0-46.0); Hemoglobin 13.3 g/dL (12.2-16.2); Lymphocytes # (auto) 1.8 10 ^3/uL (0.4-5.4); Lymphocytes % (auto) 23.4 % (10.0-50.0); Mean Corpuscular Hemoglobin 30.2 pg (28.0-32.0); Mean Corpuscular Hgb Conc. 33.1 g/dL (32.0-36.0); Monocytes # (auto) 0.6 10 ^3/uL (0-1.3); Nucleated Red Blood Cells % 0.1 %; Red Blood Cells 4.42 10^6/uL (4.0-5.20); White Blood Cell 7.6 10^3/uL (4.4-10.8)
[2023-05-07 06:44] LABS: Calcium 8.7 mg/dL (8.5-10.1); Potassium 3.6 mmol/L (3.5-5.1)
[2023-05-07 06:47] LABS: BUN/Creatinine Ratio 21.8 (10.0-20.0)
[2023-05-07] MEDS: DOXYCYCLINE 100 MG TAB/CAP PO SCH (09:33)
[2023-05-07] MEDS: METOPROLOL TARTRATE 25 MG TAB PO SCH (09:33)
[2023-05-07] MEDS ORDERED: APIXABAN 2.5 MG TAB PO SCH (10:00)
[2023-05-07] MEDS ORDERED: APIX5TAB PO (10:46)
[2023-05-07] MEDS ORDERED: AML5T PO (10:46)
[2023-05-07] MEDS ORDERED: POTA-180 PO (10:46)
[2023-05-07] MEDS ORDERED: FURO1TAB31 PO (10:46)
== END 2023-05-07 15:25 | disposition home or self-care (01) | DRG 137 ==
LOC: ER 07:38 → TELE 11:20 → TELE-WESTW 23:53
PROVIDERS: ADMIT Internal Medicine; ATTEND Student in an Organized Health Care Education/Training Program
DX: J15.6 Pneumonia due to other Gram-negative bacteria (principal); J96.21 Acute and chronic respiratory failure with hypoxia; I50.31 Acute diastolic (congestive) heart failure; N17.9 Acute kidney failure, unspecified; D68.69 Other thrombophilia; I11.0 Hypertensive heart disease with heart failure; J44.0 Chronic obstructive pulmonary disease with (acute) lower respiratory infection; Z20.822 Contact with and (suspected) exposure to COVID-19; I48.20 Chronic atrial fibrillation, unspecified; J44.1 Chronic obstructive pulmonary disease with (acute) exacerbation; E03.9 Hypothyroidism, unspecified; E78.5 Hyperlipidemia, unspecified; E87.6 Hypokalemia; E11.65 Type 2 diabetes mellitus with hyperglycemia; N39.0 Urinary tract infection, site not specified; J98.11 Atelectasis; Z82.3 Family history of stroke; Z88.1 Allergy status to other antibiotic agents
CPT/HCPCS: 36415; 36600; 71046; 71250; 80048; 80053; 81001; 82805; 82962; 83036; 83605; 83735; 83880; 84484; 85025; 85379; 87040; 87086; 87426; 87804; 93005; 93306; 94640; 96365; 97110; 97116; 97163; 97530; 99291; G0378; J0696; J1100; J1815

== ENCOUNTER → 2023-06-10 | Outpatient (CLI) | payer MEDICARE, MEDICAID ==
[~2023-06-10] MED LIST: ALPR0.255 PO; AML5T PO; APIX5TAB PO; FENO134C19 PO; FURO1TAB31 PO; LEVO25TA6 PO; LEVO50TA7 PO; METO25TA93 PO; NIFE1TAB31; POTA-180 PO
[2023-06-10 11:14] LABS: Basophils # (auto) 0.1 10 ^3/uL (0-0.2); Basophils % (auto) 0.9 % (0.0-2.0); Eosinophils # (auto) 0.1 10 ^3/uL (0-0.8); Hematocrit 37.7 % (36.0-46.0); Hemoglobin 12.4 g/dL (12.2-16.2); Lymphocytes % (auto) 28.9 % (10.0-50.0); Mean Corpuscular Hemoglobin 30.9 pg (28.0-32.0); Mean Corpuscular Hgb Conc. 32.8 g/dL (32.0-36.0); Mean Corpuscular Volume 94.3 fL (80.0-100.0); Monocytes # (auto) 0.6 10 ^3/uL (0-1.3); Monocytes % (auto) 8.6 % (0.0-12.0); Neutrophils # (auto) 4.2 10 ^3/uL (1.6-8.6); Neutrophils % (auto) 60.6 % (37.0-80.0); Nucleated Red Blood Cells % 0.1 %; Red Cell Distribution Width 14.4 % (11.8-14.3)
[2023-06-10 11:46] LABS: Urine Bacteria FEW /hpf (None Seen); Urine Blood Negative /uL (Negative); Urine Clarity Clear (Clear); Urine Color Colorless (Yellow); Urine Protein, UAD Negative (Negative); Urine Specific Gravity 1.005 (1.001-1.035); Urine Urobilinogen Normal (Negative); Urine WBC <1 /hpf (0 - 5)
[2023-06-10 12:03] LABS: INR 1.09 (0.9-1.15); Partial Thromboplastin Time 30.7 SEC (24.5-34.5); Prothrombin Time 11.4 sec (9.3-11.8)
[2023-06-10 12:04] LABS: Alanine Aminotransferase 14 U/L (7-40); Alkaline Phosphatase 40 U/L (46-116); Aspartate Aminotransferase 13 U/L (13-40); BUN/Creatinine Ratio 13.3 (10.0-20.0); Blood Urea Nitrogen 13 mg/dL (9-23); Calcium 9.4 mg/dL (8.5-10.1); Carbon Dioxide 33 mmol/L (20-30); Glucose 85 mg/dL (74-106)
[2023-06-10 12:05] LABS: Albumin 4.6 g/dL (3.2-4.8); Bilirubin, Total 0.5 mg/dL (0.2-1.0); Total Protein 7.1 g/dL (5.7-8.2)
[2023-06-10 12:41] LABS: Anion Gap 5 (5-15); Chloride 104 mmol/L (98-107); Potassium 3.8 mmol/L (3.5-5.1); Sodium 142 mmol/L (136-145)
== END | disposition home or self-care (01) ==
LOC: LAB 11:01
PROVIDERS: ATTEND Internal Medicine Cardiovascular Disease
DX: I08.0 Rheumatic disorders of both mitral and aortic valves (principal); I49.5 Sick sinus syndrome; R00.2 Palpitations; E78.00 Pure hypercholesterolemia, unspecified; I48.0 Paroxysmal atrial fibrillation; I27.20 Pulmonary hypertension, unspecified; R42 Dizziness and giddiness; I10 Essential (primary) hypertension; Z79.899 Other long term (current) drug therapy
CPT/HCPCS: 36415; 80053; 81001; 85025; 85610; 85730; 87086

== ENCOUNTER → 2023-12-10 | Outpatient (CLI) | payer MEDICARE, MEDICAID ==
[2023-12-10 07:19] LABS: Urine Blood Negative /uL (Negative); Urine Clarity Clear (Clear); Urine Color Yellow (Yellow); Urine Protein, UAD Negative (Negative); Urine Specific Gravity 1.018 (1.001-1.035); Urine Urobilinogen Normal (Negative)
[2023-12-10 07:23] LABS: Basophils # (auto) 0 10 ^3/uL (0-0.2); Basophils % (auto) 0.9 % (0.0-2.0); Eosinophils # (auto) 0 10 ^3/uL (0-0.8); Eosinophils % (auto) 0.9 % (0.0-7.0); Hematocrit 40.1 % (36.0-46.0); Hemoglobin 13.4 g/dL (12.2-16.2); Lymphocytes # (auto) 1.5 10 ^3/uL (0.4-5.4); Lymphocytes % (auto) 29.1 % (10.0-50.0); Mean Corpuscular Hemoglobin 31.9 pg (28.0-32.0); Mean Corpuscular Hgb Conc. 33.5 g/dL (32.0-36.0); Mean Corpuscular Volume 95.2 fL (80.0-100.0); Monocytes # (auto) 0.4 10 ^3/uL (0-1.3); Monocytes % (auto) 7.8 % (0.0-12.0); Neutrophils # (auto) 3.2 10 ^3/uL (1.6-8.6); Neutrophils % (auto) 61.3 % (37.0-80.0); Nucleated Red Blood Cells % 0.1 %; Red Blood Cells 4.21 10^6/uL (4.0-5.20); White Blood Cell 5.2 10^3/uL (4.4-10.8)
[2023-12-10 08:02] LABS: Alanine Aminotransferase 17 U/L (7-40); Albumin 4.3 g/dL (3.2-4.8); Alkaline Phosphatase 41 U/L (46-116); Anion Gap 5 (5-15); Aspartate Aminotransferase 21 U/L (13-40); BUN/Creatinine Ratio 9.2 (10.0-20.0); Blood Urea Nitrogen 9 mg/dL (9-23); Calcium 9.8 mg/dL (8.7-10.4); Carbon Dioxide 31 mmol/L (20-30); Chloride 107 mmol/L (98-107); Glucose 89 mg/dL (74-106); Magnesium 2.2 mg/dL (1.6-2.6); Potassium 4.1 mmol/L (3.5-5.1); Sodium 143 mmol/L (136-145); Uric Acid 4.5 mg/dL (3.1-7.8)
[2023-12-10 08:03] LABS: Bilirubin, Total 0.8 mg/dL (0.2-1.0); Total Protein 6.6 g/dL (5.7-8.2)
[2023-12-10 08:14] LABS: Triglycerides 96 mg/dL (< 150)
[2023-12-10 08:15] LABS: LDL Cholesterol 79 mg/dL (< 100)
[2023-12-10 08:16] LABS: HDL Cholesterol 61 mg/dL (40-59)
[2023-12-10 08:17] LABS: Cholesterol 152 mg/dL (< 200)
== END | disposition home or self-care (01) ==
LOC: LAB 06:40
PROVIDERS: ATTEND Family Medicine
DX: Z12.11 Encounter for screening for malignant neoplasm of colon (principal); I11.9 Hypertensive heart disease without heart failure; K21.9 Gastro-esophageal reflux disease without esophagitis; F32.9 Major depressive disorder, single episode, unspecified; E03.9 Hypothyroidism, unspecified; E78.5 Hyperlipidemia, unspecified; E55.9 Vitamin D deficiency, unspecified; I49.5 Sick sinus syndrome; M85.852 Other specified disorders of bone density and structure, left thigh; Z95.0 Presence of cardiac pacemaker; Z79.899 Other long term (current) drug therapy
CPT/HCPCS: 36415; 80053; 80061; 81003; 83036; 83735; 84443; 84550; 85025

== ENCOUNTER → 2024-10-21 | Outpatient (CLI) | payer MEDICARE, MEDICAID ==
[2024-10-21 07:05] LABS: Basophils # (auto) 0.1 10 ^3/uL (0-0.2); Eosinophils # (auto) 0.1 10 ^3/uL (0-0.8); Hematocrit 42.2 % (36.0-46.0); Hemoglobin 14.1 g/dL (12.2-16.2); Lymphocytes # (auto) 1.1 10 ^3/uL (0.4-5.4); Lymphocytes % (auto) 21.7 % (10.0-50.0); Mean Corpuscular Hgb Conc. 33.3 g/dL (32.0-36.0); Mean Corpuscular Volume 96.1 fL (80.0-100.0); Monocytes # (auto) 0.4 10 ^3/uL (0-1.3); Monocytes % (auto) 8.8 % (0.0-12.0); Neutrophils # (auto) 3.3 10 ^3/uL (1.6-8.6); Neutrophils % (auto) 65.5 % (37.0-80.0); Nucleated Red Blood Cells % 0.2 %; Platelet Count (auto) 200 10^3/uL (140-450); Red Blood Cells 4.39 10^6/uL (4.0-5.20); Red Cell Distribution Width 14.2 % (11.8-14.3)
[2024-10-21 07:21] LABS: Alanine Aminotransferase 14 U/L (7-40); Albumin 4.6 g/dL (3.2-4.8); Anion Gap 8 (5-15); Aspartate Aminotransferase 25 U/L (13-40); BUN/Creatinine Ratio 13.5 (10.0-20.0); Blood Urea Nitrogen 15 mg/dL (9-23); Chloride 106 mmol/L (98-107); Cholesterol 167 mg/dL (< 200); Glucose 84 mg/dL (74-106); LDL Cholesterol 96 mg/dL (< 100); Potassium 4.1 mmol/L (3.5-5.1); Sodium 145 mmol/L (136-145); Total Protein 6.7 g/dL (5.7-8.2); Triglycerides 101 mg/dL (< 150)
[2024-10-21 07:24] LABS: Alkaline Phosphatase 38 U/L (46-116); Calcium 10.4 mg/dL (8.7-10.4); Carbon Dioxide 31 mmol/L (20-31); HDL Cholesterol 60 mg/dL (40-59)
[2024-10-21 12:23] LABS: Urine Blood Negative /uL (Negative); Urine Clarity Turbid (Clear); Urine Color Colorless (Yellow); Urine Protein, UAD Negative (Negative); Urine Specific Gravity 1.013 (1.001-1.035); Urine Urobilinogen Normal (Negative)
[2024-10-21 12:30] LABS: Uric Acid 5.2 mg/dL (3.1-7.8)
[2024-10-21 12:31] LABS: Magnesium 2.2 mg/dL (1.6-2.6)
== END | disposition home or self-care (01) ==
LOC: LAB 06:20
PROVIDERS: ATTEND Physician Assistant Medical
DX: Z12.11 Encounter for screening for malignant neoplasm of colon (principal); I34.0 Nonrheumatic mitral (valve) insufficiency; I35.1 Nonrheumatic aortic (valve) insufficiency; I11.9 Hypertensive heart disease without heart failure; I48.0 Paroxysmal atrial fibrillation; I73.9 Peripheral vascular disease, unspecified; I27.21 Secondary pulmonary arterial hypertension; I49.5 Sick sinus syndrome; E78.5 Hyperlipidemia, unspecified; E55.9 Vitamin D deficiency, unspecified; E78.00 Pure hypercholesterolemia, unspecified; K21.9 Gastro-esophageal reflux disease without esophagitis; F32.9 Major depressive disorder, single episode, unspecified; M79.605 Pain in left leg; M25.512 Pain in left shoulder; I50.9 Heart failure, unspecified; R94.6 Abnormal results of thyroid function studies; Z95.0 Presence of cardiac pacemaker; R73.03 Prediabetes
CPT/HCPCS: 36415; 80053; 80061; 81003; 83036; 83735; 83880; 84443; 84550; 85025

== ENCOUNTER 2025-03-01 06:27 | Outpatient (CLI) | payer MEDICARE, MEDICAID ==
[2025-03-01 06:41] LABS: Urine Bacteria None Seen /hpf (None Seen)
[2025-03-01 06:50] LABS: Urine Blood Negative /uL (Negative); Urine Clarity Clear (Clear); Urine Color Light-Yellow (Yellow); Urine Mucus FEW (None Seen); Urine Protein, UAD Negative (Negative); Urine Specific Gravity 1.014 (1.001-1.035); Urine Squamous Epithelial Cell FEW /hpf (<5); Urine Urobilinogen Normal (Negative); Urine WBC 1 /HPF (0-5)
[2025-03-01 06:57] LABS: Alanine Aminotransferase 12 U/L (7-40); Albumin 4.5 g/dL (3.2-4.8); Anion Gap 7 (5-15); Aspartate Aminotransferase 23 U/L (13-40); Blood Urea Nitrogen 17 mg/dL (9-23); Calcium 10.1 mg/dL (8.7-10.4); Glucose 82 mg/dL (74-106); LDL Cholesterol 90 mg/dL (< 100); Potassium 4.2 mmol/L (3.5-5.1); Total Protein 6.6 g/dL (5.7-8.2); Triglycerides 86 mg/dL (< 150)
[2025-03-01 06:58] LABS: Alkaline Phosphatase 37 U/L (46-116); Bilirubin, Total 1.1 mg/dL (0.2-1.0); Carbon Dioxide 32 mmol/L (20-31); Chloride 108 mmol/L (98-107); Cholesterol 167 mg/dL (< 200); HDL Cholesterol 61 mg/dL (40-59); Sodium 147 mmol/L (136-145)
[2025-03-01 07:05] LABS: Basophils # (auto) 0.1 10 ^3/uL (0-0.2); Basophils % (auto) 1.7 % (0.0-2.0); Eosinophils # (auto) 0.2 10 ^3/uL (0-0.8); Eosinophils % (auto) 4.5 % (0.0-7.0); Hematocrit 41.7 % (36.0-46.0); Hemoglobin 13.9 g/dL (12.2-16.2); Lymphocytes # (auto) 1.5 10 ^3/uL (0.4-5.4); Lymphocytes % (auto) 28.6 % (10.0-50.0); Mean Corpuscular Hemoglobin 31.5 pg (28.0-32.0); Mean Corpuscular Hgb Conc. 33.3 g/dL (32.0-36.0); Mean Corpuscular Volume 94.6 fL (80.0-100.0); Monocytes # (auto) 0.5 10 ^3/uL (0-1.3); Monocytes % (auto) 8.7 % (0.0-12.0); Neutrophils % (auto) 56.5 % (37.0-80.0); Nucleated Red Blood Cells % 0.1 %; Platelet Count (auto) 208 10^3/uL (140-450); Red Blood Cells 4.41 10^6/uL (4.0-5.20); Red Cell Distribution Width 13.9 % (11.8-14.3); White Blood Cell 5.3 10^3/uL (4.4-10.8)
== END 2025-03-01 17:00 | disposition home or self-care (01) ==
LOC: LAB 06:27
PROVIDERS: ATTEND Family Medicine
DX: I13.10 Hypertensive heart and chronic kidney disease without heart failure, with stage 1 through stage 4 chronic kidney disease, or unspecified chronic kidney disease (principal); N18.31 Chronic kidney disease, stage 3a; I49.1 Atrial premature depolarization; I49.5 Sick sinus syndrome; E55.9 Vitamin D deficiency, unspecified; E03.9 Hypothyroidism, unspecified; E78.5 Hyperlipidemia, unspecified; Z12.11 Encounter for screening for malignant neoplasm of colon; Z79.899 Other long term (current) drug therapy
CPT/HCPCS: 36415; 80053; 80061; 81001; 82043; 83036; 84443; 84550; 85025

== ENCOUNTER → 2025-06-01 | Outpatient (CLI) | payer MEDICARE, MEDICAID ==
[2025-06-01 07:20] LABS: Hematocrit 41.3 % (36.0-46.0); Hemoglobin 14.0 g/dL (12.2-16.2); Mean Corpuscular Hemoglobin 31.6 pg (28.0-32.0); Mean Corpuscular Volume 93.3 fL (80.0-100.0); Nucleated Red Blood Cells % 0.0 %
[2025-06-01 07:29] LABS: Alanine Aminotransferase 10 U/L (7-40); Albumin 4.3 g/dL (3.2-4.8); Anion Gap 8 (5-15); BUN/Creatinine Ratio 12.9 (10.0-20.0); Blood Urea Nitrogen 13 mg/dL (9-23); Calcium 9.8 mg/dL (8.7-10.4); Glucose 79 mg/dL (74-106); Potassium 4.3 mmol/L (3.5-5.1); Total Protein 6.7 g/dL (5.7-8.2); Triglycerides 75 mg/dL (< 150)
[2025-06-01 07:30] LABS: Bilirubin, Total 1.0 mg/dL (0.2-1.0); Cholesterol 162 mg/dL (< 200)
[2025-06-01 07:32] LABS: Alkaline Phosphatase 36 U/L (46-116); HDL Cholesterol 62 mg/dL (40-59); Sodium 146 mmol/L (136-145)
[2025-06-01 07:33] LABS: Urine Protein, UAD Negative (Negative)
[2025-06-01 07:40] LABS: Microalb/Creat Ratio, Urine 7.0
[2025-06-01 09:44] LABS: Uric Acid 4.2 mg/dL (3.1-7.8)
[2025-06-01 10:08] LABS: Chloride 107 mmol/L (98-107)
[2025-06-01 10:09] LABS: Carbon Dioxide 31 mmol/L (20-31)
== END | disposition home or self-care (01) ==
LOC: LAB 07:06
PROVIDERS: ATTEND Family Medicine
DX: I13.10 Hypertensive heart and chronic kidney disease without heart failure, with stage 1 through stage 4 chronic kidney disease, or unspecified chronic kidney disease (principal); N18.4 Chronic kidney disease, stage 4 (severe); E78.5 Hyperlipidemia, unspecified; E55.9 Vitamin D deficiency, unspecified; E03.9 Hypothyroidism, unspecified; I49.5 Sick sinus syndrome; I49.1 Atrial premature depolarization; Z79.899 Other long term (current) drug therapy
CPT/HCPCS: 36415; 80053; 80061; 81001; 82043; 82306; 82570; 83036; 84443; 84550; 85025